=== PATIENT | male | born 1945 | race Caucasian/White ===

== ENCOUNTER 2017-06-22 11:25 | Emergency (ER) | payer MEDICARE ==
[~2017-06-22] VITALS: Ht 171.4 cm; Wt 133.8 kg
[2017-06-22] MEDS ORDERED: ALBUTEROL SULF 0.083% NEB SOLN 3 ML NEB NEB STA (12:00)
[2017-06-22] MEDS ORDERED: IPRATROPIUM BROMIDE 0.02% 2.5 ML NEB NEB ONE (12:00)
[2017-06-22 12:20] LABS: BASOPHILS % 0.5 % (0.0-1.0); EOSINOPHILS % 0.3 % (0.0-6.0); HEMATOCRIT 40.9 % (38.2-49.6); HEMOGLOBIN 13.7 g/dL (14.0-18.0); LYMPHOCYTES # (AUTO) 0.7 (1.0-3.2); LYMPHOCYTES % 11.3 % (18.0-39.1); MEAN CORPUSCULAR HEMOGLOBIN 27.7 pg (28-32); MEAN CORPUSCULAR HGB CONC 33.5 g/dL (31-35); MEAN CORPUSCULAR VOLUME 82.6 fL (81-99); MONOCYTES # (AUTO) 0.9 (0.2-0.8); MONOCYTES % 14.1 % (4.4-11.3); NEUTROPHILS # (AUTO) 4.8 (2.1-6.9); NEUTROPHILS % 73.2 % (38.7-80.0); PLATELET COUNT 190 x10e3/uL (140-360); RED BLOOD COUNT 4.95 x10e6/uL (4.3-5.7); RED CELL DISTRIBUTION WIDTH 16.1 % (11.7-14.4)
[2017-06-22 12:30] LABS: STREPTOCOCCUS GRP A ANTIGEN NEGATIVE (NEGATIVE)
--- NOTE | 2017-06-22 12:36 | Diagnostic Imaging Report ---
Portable chest x-ray CPT code 85744 INDICATION: Shortness of breath, hypoxia COMPARISON: None FINDINGS: Frontal view of the chest obtained at 1005 hours. The cardiac silhouette is enlarged. The pulmonary vascular marking are normal. The lungs demonstrate mild eventration of the right diaphragm with overlying discoid atelectasis. There are no confluent infiltrates. The central pulmonary vascular markings are prominent. No interstitial edema. The costophrenic angles are sharp. There is no pneumothorax. The osseous structures are intact and normal in morphology. IMPRESSION: 1. Cardiomegaly and central vascular prominence. This could be due to portable technique. No evidence of interstitial edema or pulmonary edema. 2. Mild eventration of the right diaphragm with overlying atelectasis. Signed by: Dr. Quyen De La Cruz MD on 06/22/2017 12:32 PM
[2017-06-22 12:40] LABS: INFLUENZAE A&B ANTIGEN (RAPID) POSITIVE FLU A (NEGATIVE)
[2017-06-22 12:44] LABS: ALBUMIN 3.5 g/dL (3.5-5.0); CALCIUM 8.9 mg/dL (8.4-10.2); CREATININE, SERUM 1.34 mg/dL (0.72-1.25)
[2017-06-22 12:50] LABS: TROPONIN I 0.447 ng/mL (0-0.300)
[2017-06-22] MEDS ORDERED: METHYLPREDNISOLONE SOD SUCC 40 MG/ML VIAL IV ONE (13:00)
== END 2017-06-22 15:23 | disposition home or self-care (01) ==
LOC: ER 11:25
DX: R06.00 Dyspnea, unspecified (principal); R05 Cough; J09.X2 Influenza due to identified novel influenza A virus with other respiratory manifestations
CPT/HCPCS: 36415; 71010; 80053; 82550; 82553; 83518; 83880; 84484; 85025; 85730; 87070; 87400; 93005; 99284; J2920

== ENCOUNTER 2017-12-17 13:07 | Emergency (ER) | payer MEDICARE ==
[~2017-12-17] VITALS: Ht 170.2 cm; Wt 125.6 kg
--- NOTE | 2017-12-17 14:14 | Diagnostic Imaging Report ---
PROCEDURE:HIP LEFT 2-3 VW (+/- PELVIS) COMPARISON:None. INDICATIONS:FALL FINDINGS: BONES: Normal mineralization for age. No acute, displaced fracture or dislocation. No lytic or blastic lesions. Minimal degenerative changes in bilateral hip joints. SOFT TISSUES:Calcification of vas deferens. Pelvic phleboliths.. OTHER:Negative. CONCLUSION: 1. No acute displaced fracture or dislocation. Correlate clinically for need for further imaging. Justin Matos M.D. Dictated by: Justin Matos M.D. on 12/17/2017 at 14:17 Electronically approved by: Justin Matos M.D. on 12/17/2017 at 14:17
== END 2017-12-17 15:54 | disposition home or self-care (01) ==
LOC: ER 13:07
DX: S70.02XA Contusion of left hip, initial encounter (principal); W01.0XXA Fall on same level from slipping, tripping and stumbling without subsequent striking against object, initial encounter; Y92.008 Other place in unspecified non-institutional (private) residence as the place of occurrence of the external cause
CPT/HCPCS: 99283